=== PATIENT | female | born 1945 | race Caucasian/White ===

== ENCOUNTER 2017-05-20 11:43 | Outpatient (CLI) | payer MEDICARE, BC | END 2017-05-20 11:44 | disposition home or self-care (01) | LOC: BICMAMMO 11:43 | PROVIDERS: ATTEND Family Medicine | DX: Z12.31 Encounter for screening mammogram for malignant neoplasm of breast (principal) | CPT/HCPCS: 77063; 77067 ==

== ENCOUNTER 2021-10-21 15:25 | Emergency (ER) | payer MEDICARE, BC ==
[~2021-10-21 15:25] MED LIST: ISOVUE-370 76%-LOCM 1 ML ONE
[2021-10-21 18:12] LABS: #Eosinphils 0.1 thou/uL (0.0-0.7); #Lymphocytes 1.5 thou/uL (1.20-3.40); #Monocytes 0.4 thou/uL (0.11-0.59); #Neutrophils 3.9 thou/uL (1.40-6.50); %Basophils 0.3 % (0.0-1.0); %Eosinophils 2.1 % (0.0-10.0); %Lymphocytes 24.5 % (21.0-51.0); %Monocytes 7.3 % (0.0-10.0); %Neutrophils 65.7 % (42.0-75.0); Mean Corpuscular HGB CONC 32.7 g/dL (32.0-36.0); Mean Corpuscular Hemoglobin 30.7 pg (27.0-31.0); Mean Corpuscular Volume 93.7 fL (78.0-98.0); Mean Platelet Volume 9.4 fL (7.4-10.4); Platelet Count 161 thou/uL (130-400); RBC Distribution Width 12.1 % (11.5-14.5); Red Blood Cell (RBC) Count 4.23 mill/uL (4.20-5.40); White Blood Cell (WBC) Count 5.9 thou/uL (4.8-10.8)
[2021-10-21 18:39] LABS: ALT (SGPT) 15 U/L (8-55); AST (SGOT) 15 U/L (5-34); Albumin 3.5 g/dL (3.4-4.8); Alkaline Phosphatase 63 U/L (40-110); Anion Gap 11 mmol/L (10-20); BUN (Urea Nitrogen) 8 mg/dL (9.8-20.1); Bilirubin, Total 0.6 mg/dL (0.2-1.2); Calc. Creatinine Clearance 0 mL/min (70-130); Calcium 8.7 mg/dL (7.8-10.44); Carbon Dioxide 28 mmol/L (23-31); Chloride 102 mmol/L (98-107); Globulin 2.5 g/dL (2.4-3.5); Glucose 98 mg/dL (83-110); Sodium 137 mmol/L (136-145)
[2021-10-21] MEDS ORDERED: Glycerin Adult Supp. (24 ct jar) RC SCH (19:15)
[2021-10-21] MEDS ORDERED: Senokot 8.6 MG TAB PO SCH (21:00)
[2021-10-21] MEDS ORDERED: Docusate 100 MG CAP PO SCH (21:00)
[2021-10-21 21:43] LABS: Bacteria/HPF 2+ HPF (None Seen); Bilirubin Negative (Negative); Blood, Urine Negative (Negative); Clarity Clear (Clear); Glucose, Urine (Dipstick) Normal (Negative); Ketone, Urine Negative (Negative); Leukocyte 75 Leu/uL (Negative); Nitrite 2+ (Negative); Protein, Urine (Dipstick) Negative (Neg-Trace); RBC/HPF None Seen HPF (0-3); Specific Gravity, Urine 1.037 (1.002-1.036); Squamous Epithelial 0-3 HPF (0-3); Urobilinogen Normal mg/dL (Less than 2)
== END 2021-10-21 22:17 | disposition home or self-care (01) ==
LOC: ERS 15:25
DX: N39.0 Urinary tract infection, site not specified (principal); E78.5 Hyperlipidemia, unspecified; E78.00 Pure hypercholesterolemia, unspecified; I10 Essential (primary) hypertension; Z87.891 Personal history of nicotine dependence
CPT/HCPCS: 36415; 74177; 80053; 81003; 81015; 85025; 87077; 87086; 87186; 99283; Q9966

== ENCOUNTER 2023-04-01 08:44 | Outpatient (CLI) | payer MEDICARE, BC | END 2023-04-01 08:45 | disposition home or self-care (01) | LOC: BICMAMMO 08:44 | PROVIDERS: ATTEND Nurse Practitioner Family | DX: Z13.820 Encounter for screening for osteoporosis (principal); M81.0 Age-related osteoporosis without current pathological fracture; Z78.0 Asymptomatic menopausal state | CPT/HCPCS: 77080 ==

== ENCOUNTER 2023-06-04 00:08 | Inpatient (IN) | payer BC, MEDICARE ==
[2023-06-04 01:19] LABS: #Eosinphils 0.1 thou/uL (0.0-0.7); #Monocytes 0.4 thou/uL (0.11-0.59); #Neutrophils 5.4 thou/uL (1.40-6.50); %Basophils 0.3 % (0.0-1.0); %Eosinophils 1.2 % (0.0-10.0); %Lymphocytes 12.5 % (21.0-51.0); %Monocytes 5.7 % (0.0-10.0); Hematocrit 38.9 % (36.0-47.0); Hemoglobin 13.1 g/dL (12.0-16.0); Mean Corpuscular HGB CONC 33.7 g/dL (32.0-36.0); Mean Corpuscular Hemoglobin 29.3 pg (27.0-31.0); Mean Platelet Volume 12.1 fL (7.4-10.4); Platelet Count 139 10x3/uL (130-400); RBC Distribution Width 13.9 % (11.5-14.5); Red Blood Cell (RBC) Count 4.47 mill/uL (4.20-5.40); White Blood Cell (WBC) Count 6.7 10x3/uL (4.8-10.8)
[2023-06-04 01:33] LABS: INR-International Normal Ratio 2.2; Prothrombin Time 24.1 sec (12.0-14.7)
[2023-06-04 01:42] LABS: ALT (SGPT) 31 U/L (8-55); AST (SGOT) 47 U/L (5-34); Albumin 3.4 g/dL (3.4-4.8); Alkaline Phosphatase 75 U/L (40-110); Anion Gap 11 mmol/L (10-20); BUN (Urea Nitrogen) 12 mg/dL (9.8-20.1); Bilirubin, Total 1.6 mg/dL (0.2-1.2); Calc. Creatinine Clearance 0 mL/min (70-130); Calcium 8.6 mg/dL (7.8-10.44); Carbon Dioxide 28 mmol/L (23-31); Chloride 99 mmol/L (98-107); Estimated GFR 77; Globulin 2.5 g/dL (2.4-3.5); Glucose 114 mg/dL (83-110); Lipase 27 U/L (8-78); Potassium 3.2 mmol/L (3.5-5.1); Protein, Total 5.9 g/dL (5.8-8.1); Sodium 135 mmol/L (136-145)
[2023-06-04 01:44] LABS: Troponin I 0.017 ng/mL (< 0.028)
[2023-06-04] MEDS ORDERED: Potassium Bicarbonate/Cit Ac 20 MEQ TAB ONE (02:24)
[2023-06-04] MEDS ORDERED: Magnesium 2 GM/50 ML BAG (IN WATER) ONE (03:03)
[2023-06-04 04:14] LABS: Bacteria/HPF None Seen HPF (None Seen); Bilirubin Negative (Negative); Blood, Urine Negative (Negative); CAUTI Indications for Culture Pelvic or flank pain; Clarity Clear (Clear); Glucose, Urine (Dipstick) Normal (Negative); Ketone, Urine Negative (Negative); Leukocyte 250 Leu/uL (Negative); Nitrite Negative (Negative); Protein, Urine (Dipstick) Negative (Neg-Trace); RBC/HPF 0-3 HPF (0-3); Specific Gravity, Urine 1.016 (1.002-1.036); Squamous Epithelial 0-3 HPF (0-3); pH, Urine 7.5 (5.0-9.0)
[2023-06-04 04:22] LABS: Urine Culture Reflex No No
[2023-06-04] MEDS ORDERED: Sodium Chloride 0.9% 100 ML ONE (07:50)
[2023-06-04] MEDS ORDERED: Piperacillin/Tazobactam 4.5 GM VIAL ONE (07:50)
[2023-06-04] MEDS ORDERED: Acetaminophen 650 MG Suppository PR PRN (10:38)
[2023-06-04] MEDS: Sodium Chloride 0.9% 1,000 ML IV SCH (11:49)
[2023-06-04] MEDS: dilTIAZem 125 MG in Sodium Chloride 0.9% 100 ML IVPB SCH (12:00)
[2023-06-04] MEDS: NS 0.9% w/ 20 MEQ KCL 1,000 ML/1,000 ML BAG IV SCH (12:00)
[2023-06-04] MEDS ORDERED: Piperacillin/Tazobactam 4.5 GM in Sodium Chloride 0.9% 100 ML IVPB SCH (14:00)
[2023-06-04] MEDS ORDERED: Iopamidol-370 76% 500 ML MDV (1 ML CHARGE) ONE (15:33)
[2023-06-04] MEDS: HYDROcodone/Acetaminophen 5/325 mg Tablet PO PRN (18:11)
[2023-06-04] MEDS: Piperacillin/Tazobactam 4.5 GM in Sodium Chloride 0.9% 100 ML IVPB SCH (18:12)
[2023-06-04] MEDS ORDERED: Ondansetron ODT 4 MG TAB PO PRN (19:55)
[2023-06-04] MEDS: Ondansetron PF 4 MG/2 ML Vial IVP PRN (20:43)
[2023-06-04] MEDS: Calcium Carbonate 500 MG ChewTAB PO PRN (20:43)
[2023-06-05 05:03] LABS: ALT (SGPT) 39 U/L (8-55); AST (SGOT) 31 U/L (5-34); Albumin 3.4 g/dL (3.4-4.8); Alkaline Phosphatase 75 U/L (40-110); Anion Gap 10 mmol/L (10-20); BUN (Urea Nitrogen) 8 mg/dL (9.8-20.1); Calc. Creatinine Clearance 85 mL/min (70-130); Calcium 8.7 mg/dL (7.8-10.44); Carbon Dioxide 26 mmol/L (23-31); Chloride 105 mmol/L (98-107); Estimated GFR 82; Globulin 2.6 g/dL (2.4-3.5); Glucose 95 mg/dL (83-110); Potassium 4.3 mmol/L (3.5-5.1); Sodium 137 mmol/L (136-145)
[2023-06-05] MEDS: Benzonatate 100 MG CAP PO PRN (21:36)
[2023-06-05] MEDS: GUAIFENESIN SF SOLN 200 MG/10 ML UDCUP PO PRN (22:41)
[2023-06-05] MEDS: dilTIAZem 25 MG/5 ML VIAL SLOW IVP SCH (23:13)
[2023-06-05] MEDS: dilTIAZem 125 MG in Sodium Chloride 0.9% 100 ML IVPB SCH (23:18)
[2023-06-06] MEDS: Metoprolol Tartrate 5 MG (5 mL) VIAL IVP SCH (04:49)
[2023-06-06] MEDS: Ipratropium/Albuterol 3 ML NEB NEB SCH (12:22)
[2023-06-06] MEDS: Sodium Chloride 0.9% 1,000 ML IV SCH (12:35)
[2023-06-06 13:54] LABS: #Eosinphils 0.1 thou/uL (0.0-0.7); #Monocytes 0.5 thou/uL (0.11-0.59); #Neutrophils 5.8 thou/uL (1.40-6.50); %Basophils 0.3 % (0.0-1.0); %Eosinophils 0.8 % (0.0-10.0); %Lymphocytes 12.2 % (21.0-51.0); %Monocytes 6.6 % (0.0-10.0); %Neutrophils 79.5 % (42.0-75.0); Hematocrit 39.5 % (36.0-47.0); Hemoglobin 12.4 g/dL (12.0-16.0); Mean Corpuscular HGB CONC 31.4 g/dL (32.0-36.0); Mean Corpuscular Hemoglobin 28.9 pg (27.0-31.0); Mean Corpuscular Volume 92.1 fl (78.0-98.0); Mean Platelet Volume 12.5 fL (7.4-10.4); Platelet Count 130 10x3/uL (130-400); RBC Distribution Width 14.3 % (11.5-14.5); Red Blood Cell (RBC) Count 4.29 mill/uL (4.20-5.40); White Blood Cell (WBC) Count 7.2 10x3/uL (4.8-10.8)
[2023-06-06] MEDS ORDERED: Furosemide 20 MG (2 mL) VIAL SLOW IVP SCH (14:00)
[2023-06-06 14:16] LABS: Anion Gap 10 mmol/L (10-20); BUN (Urea Nitrogen) 5 mg/dL (9.8-20.1); Calc. Creatinine Clearance 90 mL/min (70-130); Calcium 8.2 mg/dL (7.8-10.44); Carbon Dioxide 24 mmol/L (23-31); Chloride 102 mmol/L (98-107); Estimated GFR 87; Glucose 209 mg/dL (83-110); Potassium 3.6 mmol/L (3.5-5.1); Sodium 132 mmol/L (136-145)
[2023-06-06] MEDS: Piperacillin/Tazobactam 3.375 GM in Sodium Chloride 0.9% 100 ML IVPB SCH (15:42)
[2023-06-06] MEDS: Enoxaparin 100 MG (1 mL) SYRINGE SC SCH (20:59)
[2023-06-06] MEDS: Levalbuterol HCl 0.63 MG/3 ML NEB NEB SCH (21:38)
[2023-06-06] MEDS: Budesonide 0.5 MG/2 ML NEB INH SCH (21:38)
[2023-06-07 05:50] LABS: #Eosinphils 0.1 thou/uL (0.0-0.7); #Monocytes 0.7 thou/uL (0.11-0.59); #Neutrophils 6.2 thou/uL (1.40-6.50); %Basophils 0.3 % (0.0-1.0); %Eosinophils 0.8 % (0.0-10.0); %Lymphocytes 11.9 % (21.0-51.0); %Monocytes 8.9 % (0.0-10.0); %Neutrophils 77.8 % (42.0-75.0); Hematocrit 40.4 % (36.0-47.0); Mean Corpuscular HGB CONC 32.2 g/dL (32.0-36.0); Mean Corpuscular Hemoglobin 28.6 pg (27.0-31.0); Mean Platelet Volume 13.2 fL (7.4-10.4); Platelet Count 149 10x3/uL (130-400); RBC Distribution Width 13.8 % (11.5-14.5); Red Blood Cell (RBC) Count 4.55 mill/uL (4.20-5.40); White Blood Cell (WBC) Count 7.9 10x3/uL (4.8-10.8)
[2023-06-07 05:56] LABS: Mean Corpuscular Volume 88.8 fl (78.0-98.0)
[2023-06-07] MEDS: Magnesium 2 GM/50 ML(in water) 2 GM in Premix 1 BAG IVPB SCH (06:08)
[2023-06-07] MEDS: Ipratropium Bromide 2.5 ml Neb NEB SCH (06:11)
[2023-06-07 06:20] LABS: ALT (SGPT) 24 U/L (8-55); AST (SGOT) 14 U/L (5-34); Albumin 3.2 g/dL (3.4-4.8); Alkaline Phosphatase 67 U/L (40-110); Anion Gap 10 mmol/L (10-20); BUN (Urea Nitrogen) 5 mg/dL (9.8-20.1); Bilirubin, Total 1.1 mg/dL (0.2-1.2); Calc. Creatinine Clearance 106 mL/min (70-130); Calcium 8.4 mg/dL (7.8-10.44); Carbon Dioxide 24 mmol/L (23-31); Chloride 101 mmol/L (98-107); Estimated GFR 91; Globulin 2.7 g/dL (2.4-3.5); Glucose 115 mg/dL (83-110); Potassium 3.5 mmol/L (3.5-5.1); Protein, Total 5.9 g/dL (5.8-8.1); Sodium 131 mmol/L (136-145)
[2023-06-07 06:52] LABS: Magnesium 1.7 mg/dL (1.6-2.6)
[2023-06-07] MEDS: Furosemide 20 MG (2 mL) VIAL SLOW IVP SCH (07:13)
[2023-06-07] MEDS: methylPREDNISolone Sod Succ/PF 125 MG/2 ML VIAL IVP SCH (07:15)
[2023-06-07] MEDS: Morphine 2 MG/ML VIAL SLOW IVP SCH (07:19)
[2023-06-07] MEDS: dilTIAZem 30 MG TAB PO SCH (09:00)
[2023-06-07] MEDS: Potassium Chloride 20 MEQ in Premix 1 BAG IVPB SCH (09:00)
[2023-06-07] MEDS: Furosemide 40 MG (4 mL) VIAL SLOW IVP SCH (09:00)
[2023-06-07] MEDS: Loratadine 10 MG TAB PO SCH (09:00)
[2023-06-07] MEDS: Raloxifene 60 MG TAB PO SCH (10:26)
[2023-06-07] MEDS: Digoxin 0.5 MG/2 ML AMP SLOW IVP SCH (10:27)
[2023-06-07] MEDS: Ipratropium Bromide 2.5 ml Neb ONE (12:14)
[2023-06-07] MEDS ORDERED: Levalbuterol HCl 0.63 MG/3 ML NEB NEB PRN (13:25)
[2023-06-07] MEDS ORDERED: Electrolyte Replacement Protocol FS PRN (16:45)
[2023-06-07 17:11] LABS: Anion Gap 11 mmol/L (10-20); BUN (Urea Nitrogen) 5 mg/dL (9.8-20.1); Calc. Creatinine Clearance 98 mL/min (70-130); Calcium 8.6 mg/dL (7.8-10.44); Carbon Dioxide 23 mmol/L (23-31); Chloride 100 mmol/L (98-107); Estimated GFR 88; Glucose 222 mg/dL (83-110); Sodium 130 mmol/L (136-145)
[2023-06-08] MEDS: HYDROcodone/Acetaminophen 5/325 mg Tablet PO PRN (02:49)
[2023-06-08] MEDS: Acetaminophen 325 MG TAB PO PRN (03:51)
[2023-06-08 04:07] LABS: #Monocytes 0.5 thou/uL (0.11-0.59); #Neutrophils 9.1 thou/uL (1.40-6.50); %Monocytes 4.9 % (0.0-10.0); %Neutrophils 89.9 % (42.0-75.0); Hematocrit 38.2 % (36.0-47.0); Hemoglobin 12.9 g/dL (12.0-16.0); Mean Corpuscular HGB CONC 33.8 g/dL (32.0-36.0); Mean Platelet Volume 11.9 fL (7.4-10.4); Platelet Count 154 10x3/uL (130-400); RBC Distribution Width 13.8 % (11.5-14.5); Red Blood Cell (RBC) Count 4.45 mill/uL (4.20-5.40); White Blood Cell (WBC) Count 10.1 10x3/uL (4.8-10.8)
[2023-06-08 04:14] LABS: Mean Corpuscular Volume 85.8 fl (78.0-98.0)
[2023-06-08 04:33] LABS: Phosphorus 1.7 mg/dL (2.3-4.7)
[2023-06-08 05:05] LABS: Alkaline Phosphatase 59 U/L (40-110); Anion Gap 11 mmol/L (10-20); Bilirubin, Total 0.8 mg/dL (0.2-1.2); Calcium 8.7 mg/dL (7.8-10.44); Carbon Dioxide 26 mmol/L (23-31); Chloride 100 mmol/L (98-107); Globulin 2.6 g/dL (2.4-3.5); Glucose 142 mg/dL (83-110); Potassium 3.6 mmol/L (3.5-5.1); Protein, Total 5.6 g/dL (5.8-8.1); Sodium 133 mmol/L (136-145)
[2023-06-08 05:06] LABS: Calc. Creatinine Clearance 105 mL/min (70-130); Estimated GFR 89
[2023-06-08 05:07] LABS: BUN (Urea Nitrogen) 9 mg/dL (9.8-20.1)
[2023-06-08 05:08] LABS: ALT (SGPT) 22 U/L (8-55); AST (SGOT) 14 U/L (5-34); Magnesium 1.9 mg/dL (1.6-2.6)
[2023-06-08] MEDS ORDERED: Bacteriostatic Normal Saline 30 ML VIAL ONE (09:15)
[2023-06-08] MEDS ORDERED: Sincalide 5 MCG VIAL ONE (09:15)
[2023-06-08] MEDS ORDERED: Sterile Water 10 ML ONE (09:15)
[2023-06-08] MEDS: Magnesium 2 GM/50 ML(in water) 2 GM in Premix 1 BAG IVPB SCH (11:38)
[2023-06-08] MEDS: PHOS-NAK 1 PKT PACK PO SCH (11:40)
[2023-06-08] MEDS: Rivaroxaban 10 MG TAB PO SCH (16:41)
[2023-06-08] MEDS: Amoxicillin/Potassium Clav 875 MG TAB PO SCH (21:01)
[2023-06-08] MEDS: Metoprolol Tartrate 25 MG TAB PO SCH (21:02)
[2023-06-09 04:39] LABS: ALT (SGPT) 23 U/L (8-55); AST (SGOT) 17 U/L (5-34); Albumin 2.8 g/dL (3.4-4.8); Alkaline Phosphatase 56 U/L (40-110); Anion Gap 8 mmol/L (10-20); BUN (Urea Nitrogen) 12 mg/dL (9.8-20.1); Bilirubin, Total 0.5 mg/dL (0.2-1.2); Calc. Creatinine Clearance 102 mL/min (70-130); Calcium 8.2 mg/dL (7.8-10.44); Carbon Dioxide 30 mmol/L (23-31); Chloride 98 mmol/L (98-107); Estimated GFR 89; Globulin 2.4 g/dL (2.4-3.5); Glucose 94 mg/dL (83-110); Magnesium 1.9 mg/dL (1.6-2.6); Potassium 3.4 mmol/L (3.5-5.1); Protein, Total 5.2 g/dL (5.8-8.1); Sodium 133 mmol/L (136-145)
[2023-06-09] MEDS: Magnesium 2 GM/50 ML(in water) 2 GM in Premix 1 BAG IVPB SCH (09:10)
[2023-06-09] MEDS: dilTIAZem 30 MG TAB PO SCH (09:11)
[2023-06-09] MEDS: Potassium Chloride 20 MEQ TAB PO SCH (09:12)
[2023-06-09] MEDS: Digoxin 0.125 MG TAB PO SCH (13:14)
[2023-06-10] MEDS ORDERED: dilTIAZem 125 MG in Sodium Chloride 0.9% 100 ML IVPB SCH (05:57)
[2023-06-10 08:06] LABS: Anion Gap 12 mmol/L (10-20); BUN (Urea Nitrogen) 12 mg/dL (9.8-20.1); Calc. Creatinine Clearance 105 mL/min (70-130); Calcium 8.3 mg/dL (7.8-10.44); Carbon Dioxide 26 mmol/L (23-31); Chloride 101 mmol/L (98-107); Estimated GFR 90; Glucose 80 mg/dL (83-110); Potassium 3.9 mmol/L (3.5-5.1); Sodium 135 mmol/L (136-145)
[2023-06-10] MEDS ORDERED: Metoprolol Tartrate 25 MG TAB PO SCH (08:20)
[2023-06-10] MEDS: Digoxin 0.125 MG TAB PO SCH (09:34)
[2023-06-10] MEDS: Furosemide 20 MG TAB PO SCH (09:34)
[2023-06-10] MEDS: dilTIAZem CD 300 MG CAP PO SCH (09:34)
[2023-06-10] MEDS: Magnesium 2 GM/50 ML(in water) 2 GM in Premix 1 BAG IVPB SCH (09:34)
[2023-06-10] MEDS: Metoprolol Tartrate 50 MG TAB PO SCH (09:35)
[2023-06-10 10:52] VITALS: BMI 33.3
[2023-06-11] MEDS: Bisacodyl 5 MG TAB PO PRN (18:38)
[2023-06-11 19:18] LABS: Anion Gap 13 mmol/L (10-20); BUN (Urea Nitrogen) 13 mg/dL (9.8-20.1); Calc. Creatinine Clearance 95 mL/min (70-130); Calcium 8.9 mg/dL (7.8-10.44); Carbon Dioxide 23 mmol/L (23-31); Chloride 100 mmol/L (98-107); Estimated GFR 87; Glucose 105 mg/dL (83-110); Potassium 3.9 mmol/L (3.5-5.1); Sodium 132 mmol/L (136-145)
[2023-06-13] MEDS: Ipratropium Bromide 2.5 ml Neb NEB SCH (18:50)
[2023-06-16 05:16] LABS: #Eosinphils 0.2 thou/uL (0.0-0.7); #Monocytes 0.6 thou/uL (0.11-0.59); #Neutrophils 4.7 thou/uL (1.40-6.50); %Basophils 0.6 % (0.0-1.0); %Eosinophils 2.4 % (0.0-10.0); %Lymphocytes 18.7 % (21.0-51.0); %Monocytes 9.1 % (0.0-10.0); %Neutrophils 68.8 % (42.0-75.0); Hematocrit 43.4 % (36.0-47.0); Hemoglobin 14.9 g/dL (12.0-16.0); Mean Corpuscular HGB CONC 34.3 g/dL (32.0-36.0); Mean Corpuscular Hemoglobin 29.3 pg (27.0-31.0); Mean Corpuscular Volume 85.3 fl (78.0-98.0); Mean Platelet Volume 11.1 fL (7.4-10.4); Platelet Count 223 10x3/uL (130-400); RBC Distribution Width 13.8 % (11.5-14.5); Red Blood Cell (RBC) Count 5.09 mill/uL (4.20-5.40); White Blood Cell (WBC) Count 6.8 10x3/uL (4.8-10.8)
[2023-06-16 05:49] LABS: Anion Gap 12 mmol/L (10-20); BUN (Urea Nitrogen) 12 mg/dL (9.8-20.1); Calc. Creatinine Clearance 103 mL/min (70-130); Calcium 8.8 mg/dL (7.8-10.44); Carbon Dioxide 23 mmol/L (23-31); Chloride 100 mmol/L (98-107); Estimated GFR 89; Glucose 105 mg/dL (83-110); Magnesium 1.9 mg/dL (1.6-2.6); Sodium 131 mmol/L (136-145)
[2023-06-16] MEDS: Magnesium 2 GM/50 ML(in water) 2 GM in Premix 1 BAG IVPB SCH (09:16)
[2023-06-21 20:00] VITALS: BP 123/78; TEMP 97.9
[2023-06-22] MEDS ORDERED: Lysine 500 MG TAB PO SCH (09:00)
== END 2023-06-21 20:45 | DRG 444 ==
LOC: ERS 00:08 → 2NO 08:20 → CCU 06-07 06:34 → 2NO 06-09 11:33 → SURG A 06-19 11:17
PROVIDERS: ADMIT Internal Medicine; ATTEND Emergency Medicine
DX: K80.00 Calculus of gallbladder with acute cholecystitis without obstruction (principal); J96.01 Acute respiratory failure with hypoxia; I50.32 Chronic diastolic (congestive) heart failure; I48.19 Other persistent atrial fibrillation; I11.0 Hypertensive heart disease with heart failure; Z66 Do not resuscitate; I25.10 Atherosclerotic heart disease of native coronary artery without angina pectoris; E78.5 Hyperlipidemia, unspecified; J30.2 Other seasonal allergic rhinitis; K21.9 Gastro-esophageal reflux disease without esophagitis; I87.2 Venous insufficiency (chronic) (peripheral); N28.1 Cyst of kidney, acquired; Z88.8 Allergy status to other drugs, medicaments and biological substances; Z79.899 Other long term (current) drug therapy; Z98.49 Cataract extraction status, unspecified eye; Z98.890 Other specified postprocedural states; Z87.891 Personal history of nicotine dependence; Z82.49 Family history of ischemic heart disease and other diseases of the circulatory system
CPT/HCPCS: 36415; 36416; 71045; 74177; 76705; 78226; 80048; 80053; 81001; 83605; 83690; 83735; 83880; 84100; 84484; 85025; 85610; 85730; 87040; 93005; 93010; 94640; 94660; 94760; 96365; 96375; A9537; J1160; J1650; J1940; J2405; J2543; J2805; J2930; J3475; J3480; J3490; J7050; J7614; J7620; J7626; Q9967

== ENCOUNTER 2023-10-27 09:30 | Outpatient (CLI) | payer MEDICARE | END 2023-10-27 09:31 | disposition home or self-care (01) | LOC: PET 09:30 | PROVIDERS: ATTEND Psychiatry & Neurology Neurology | DX: F03.90 Unspecified dementia, unspecified severity, without behavioral disturbance, psychotic disturbance, mood disturbance, and anxiety (principal) | CPT/HCPCS: 78803; A9552 ==

== ENCOUNTER 2024-03-04 19:00 | Inpatient (IN) | payer MEDICARE ==
[~2024-03-04 19:00] MED LIST changes: -ISOVUE-370 76%-LOCM 1 ML ONE; +Iopamidol-370 76% 500 ML MDV (1 ML CHARGE) ONE
[2024-03-04 19:55] LABS: #Basophils 0.04 10x3/uL (0.0-0.2); %Basophils 0.4 % (0.0-1.0); %Eosinophils 2.3 % (0.0-10.0); %Lymphocytes 18.5 % (21.0-51.0); %Monocytes 6.9 % (0.0-10.0); %Neutrophils 71.6 % (42.0-75.0); Hematocrit 40.3 % (36.0-47.0); Hemoglobin 13.5 g/dL (12.0-16.0); Mean Corpuscular HGB CONC 33.5 g/dL (32.0-36.0); Mean Corpuscular Hemoglobin 29.8 pg (27.0-31.0); Mean Platelet Volume 10.9 fL (7.4-10.4); Platelet Count 216 10x3/uL (130-400); RBC Distribution Width 12.9 % (11.5-14.5); Red Blood Cell (RBC) Count 4.53 mill/uL (4.20-5.40)
[2024-03-04 20:15] LABS: INR-International Normal Ratio 1.6; Prothrombin Time 19.4 sec (12.0-14.7)
[2024-03-04 20:16] LABS: PTT 44.9 sec (22.9-36.1)
[2024-03-04 20:24] LABS: ALT (SGPT) 17 U/L (8-55); AST (SGOT) 16 U/L (5-34); Albumin 3.3 g/dL (3.4-4.8); Alkaline Phosphatase 91 U/L (40-110); Anion Gap 16 mmol/L (10-20); BUN (Urea Nitrogen) 11 mg/dL (9.8-20.1); Bilirubin, Total 0.3 mg/dL (0.2-1.2); Calc. Creatinine Clearance 0 mL/min (70-130); Calcium 8.7 mg/dL (7.8-10.44); Carbon Dioxide 23 mmol/L (23-31); Chloride 103 mmol/L (98-107); Estimated GFR 66; Globulin 3.4 g/dL (2.4-3.5); Glucose 152 mg/dL (83-110); Potassium 3.8 mmol/L (3.5-5.1); Protein, Total 6.7 g/dL (5.8-8.1); Sodium 138 mmol/L (136-145)
[2024-03-04 20:59] LABS: Bacteria/HPF None Seen HPF (None Seen); Bilirubin Negative (Negative); Blood, Urine Negative (Negative); CAUTI Indications for Culture Alt mental st,lethar; Clarity Turbid (Clear); Glucose, Urine (Dipstick) Normal (Negative); Ketone, Urine Negative (Negative); Leukocyte 500 Leu/uL (Negative); Nitrite Negative (Negative); Protein, Urine (Dipstick) Negative (Neg-Trace); RBC/HPF 0-3 HPF (0-3); Specific Gravity, Urine 1.008 (1.002-1.036); Squamous Epithelial 0-3 HPF (0-3); Urobilinogen Normal mg/dL (Less than 2); WBC/HPF 21-50 HPF (0-3); pH, Urine 6.5 (5.0-9.0)
[2024-03-04 21:01] LABS: Urine Culture Reflex Yes Yes
[2024-03-04] MEDS ORDERED: cefTRIAXone (ROCEPHIN) 1 GM VIAL ONE (21:24)
[2024-03-04] MEDS ORDERED: Sodium Chloride 0.9% 100 ML ONE (21:24)
[2024-03-04] MEDS ORDERED: Ondansetron ODT 4 MG TAB PO PRN (21:49)
[2024-03-04 23:44] VITALS: BMI 27.8
[2024-03-05 05:12] LABS: #Basophils 0.03 10x3/uL (0.0-0.2); %Basophils 0.3 % (0.0-1.0); %Eosinophils 1.3 % (0.0-10.0); %Lymphocytes 14.1 % (21.0-51.0); %Monocytes 6.2 % (0.0-10.0); %Neutrophils 77.8 % (42.0-75.0); Hematocrit 40.3 % (36.0-47.0); Hemoglobin 13.2 g/dL (12.0-16.0); Mean Corpuscular HGB CONC 32.8 g/dL (32.0-36.0); Mean Corpuscular Hemoglobin 29.5 pg (27.0-31.0); Mean Platelet Volume 11.3 fL (7.4-10.4); Platelet Count 202 10x3/uL (130-400); RBC Distribution Width 13.1 % (11.5-14.5); Red Blood Cell (RBC) Count 4.48 mill/uL (4.20-5.40)
[2024-03-05] MEDS: Senokot S 8.6-50 MG TAB PO SCH (08:33)
[2024-03-05] MEDS: Acetaminophen 325 MG TAB PO PRN (12:01)
[2024-03-05] MEDS: traMADol HCl 50 MG TAB PO PRN (17:52)
[2024-03-05] MEDS ORDERED: Budesonide 0.5 MG/2 ML NEB NEB PRN (20:46)
[2024-03-05] MEDS: Atorvastatin Calcium 20 MG TAB PO SCH (22:06)
[2024-03-05] MEDS: Metoprolol Tartrate 25 MG TAB PO SCH (22:06)
[2024-03-05] MEDS: Fluticasone Propionate Nasal Spray 16 gm Bottle NASAL SCH (22:07)
[2024-03-06] MEDS: Rivastigmine 1.5 MG CAP PO SCH (08:29)
[2024-03-06] MEDS: Loratadine 10 MG TAB PO SCH (08:30)
[2024-03-06] MEDS: Digoxin 0.125 MG TAB PO SCH (08:30)
[2024-03-06] MEDS: dilTIAZem CD 300 MG CAP PO SCH (08:30)
[2024-03-06] MEDS: Pantoprazole DR 40 MG TAB PO SCH (08:30)
[2024-03-06] MEDS: Raloxifene 60 MG TAB PO SCH (08:30)
[2024-03-06] MEDS ORDERED: Rivaroxaban 10 MG TAB PO SCH (09:00)
[2024-03-06 11:42] VITALS: BP 138/83; TEMP 97.7
[2024-03-06] MEDS: LYSINE 500 MG PO SCH (11:42)
== END 2024-03-06 15:55 | disposition home or self-care (01) | DRG 552 ==
LOC: ERS 19:00 → SURG A 22:11 → OBSVTOIN 03-06 09:35
PROVIDERS: ADMIT Surgery; ATTEND Surgery
DX: S16.1XXA Strain of muscle, fascia and tendon at neck level, initial encounter (principal); I48.91 Unspecified atrial fibrillation; I10 Essential (primary) hypertension; E78.5 Hyperlipidemia, unspecified; K21.9 Gastro-esophageal reflux disease without esophagitis; Z98.890 Other specified postprocedural states; Z87.891 Personal history of nicotine dependence; Z88.8 Allergy status to other drugs, medicaments and biological substances; Z79.899 Other long term (current) drug therapy; W19.XXXA Unspecified fall, initial encounter
CPT/HCPCS: 36415; 70450; 71260; 72125; 72141; 74177; 80053; 81001; 85025; 85610; 85730; 87077; 87086; 87186; 93005; 96374; G0378; J0696; Q9967

== ENCOUNTER 2024-04-06 13:41 | Outpatient (CLI) | payer MEDICARE | END 2024-04-06 13:42 | disposition home or self-care (01) | LOC: BICMAMMO 13:41 | PROVIDERS: ATTEND Nurse Practitioner Family | DX: N63.0 Unspecified lump in unspecified breast (principal) | CPT/HCPCS: 76642; 77066; G0279 ==

== ENCOUNTER → 2024-05-28 | Day surgery (SDC) | payer MEDICARE ==
[~2024-05-28] MED LIST changes: -Iopamidol-370 76% 500 ML MDV (1 ML CHARGE) ONE; +Lidocaine 1% PF 5 ML VIAL ONE; +Sodium Bicarbonate 2.5 MEQ/5 ML SDV ONE
[2024-05-28 12:54] LABS: CSF, Protein 34.2 mg/dL (15-40)
[2024-05-28 13:43] LABS: CSF Source CSF; Clarity Clear (Clear); Tube # 4
[2024-05-30 03:12] LABS: HSV 1 - DNA, CSF Negative (Negative); HSV 2 - DNA, CSF Negative (Negative)
== END ==
LOC: RAD 08:36
PROVIDERS: ATTEND Psychiatry & Neurology Neurology
PROC: 009U3ZX Drainage of Spinal Canal, Percutaneous Approach, Diagnostic (ICD-10-PCS; principal; 2024-05-28)
DX: G91.2 (Idiopathic) normal pressure hydrocephalus (principal); Z88.8 Allergy status to other drugs, medicaments and biological substances; Z91.038 Other insect allergy status
CPT/HCPCS: 62270; 82945; 84157; 86612; 86635; 86698; 87070; 87205; 87529; 87899; 89051

== ENCOUNTER 2024-12-08 08:17 | Emergency (ER) | payer MEDICARE ==
[2024-12-08 09:06] LABS: Bacteria/HPF 4+ HPF (None Seen); CAUTI Indications for Culture Alt mental st,lethar; Glucose, Urine (Dipstick) Normal (Negative); Leukocyte 250 Leu/uL (Negative); Protein, Urine (Dipstick) Negative (Neg-Trace); RBC/HPF 0-3 HPF (0-3); Specific Gravity, Urine 1.017 (1.002-1.036); WBC/HPF 21-50 HPF (0-3)
[2024-12-08 09:10] LABS: Urine Culture Reflex Yes Yes
[2024-12-08] MEDS ORDERED: cefTRIAXone (ROCEPHIN) 1 GM VIAL ONE (09:29)
[2024-12-08 09:51] LABS: #Basophils 0.04 10x3/uL (0.0-0.2); #Eosinophils 0.17 10x3/uL (0.0-0.7); #Monocytes 0.49 10x3/uL (0.11-0.59); #Neutrophils 6.19 10x3/uL (1.40-6.50); %Basophils 0.5 % (0.0-1.0); %Eosinophils 2.1 % (0.0-10.0); %Lymphocytes 16.1 % (21.0-51.0); %Monocytes 5.9 % (0.0-10.0); %Neutrophils 75.0 % (42.0-75.0); Hematocrit 41.1 % (36.0-47.0); Hemoglobin 13.6 g/dL (12.0-16.0); Mean Corpuscular Hemoglobin 30.0 pg (27.0-31.0); Mean Corpuscular Volume 90.5 fL (78.0-98.0); Platelet Count 188 10x3/uL (130-400); Red Blood Cell (RBC) Count 4.54 mill/uL (4.20-5.40); White Blood Cell (WBC) Count 8.25 10x3/uL (4.8-10.8)
[2024-12-08 10:15] LABS: Digoxin 0.58 ng/mL (0.8-2.0)
[2024-12-08 10:16] LABS: ALT (SGPT) 17 U/L (Less than 34); AST (SGOT) 18 U/L (11-34); Albumin 3.3 g/dL (3.1-4.5); Alkaline Phosphatase 85 U/L (40-110); Anion Gap 15 mmol/L (10-20); BUN (Urea Nitrogen) 13 mg/dL (9.8-20.1); Bilirubin, Total 0.5 mg/dL (0.3-1.2); Calc. Creatinine Clearance 0 mL/min (70-130); Calcium 8.7 mg/dL (7.8-10.44); Carbon Dioxide 24 mmol/L (23-31); Chloride 105 mmol/L (98-107); Globulin 3.3 g/dL (2.4-3.5); Glucose 106 mg/dL (83-110); Potassium 4.1 mmol/L (3.5-5.1); Sodium 140 mmol/L (136-145)
[2024-12-08 12:50] LABS: Troponin I Less than 0.010 ng/mL (< 0.028)
== END 2024-12-08 13:10 ==
LOC: ERS 08:17
DX: R07.89 Other chest pain (principal); F03.90 Unspecified dementia, unspecified severity, without behavioral disturbance, psychotic disturbance, mood disturbance, and anxiety; N39.0 Urinary tract infection, site not specified; I48.91 Unspecified atrial fibrillation; E78.5 Hyperlipidemia, unspecified; I10 Essential (primary) hypertension; I25.10 Atherosclerotic heart disease of native coronary artery without angina pectoris; Z87.891 Personal history of nicotine dependence; Z79.02 Long term (current) use of antithrombotics/antiplatelets; Z79.899 Other long term (current) drug therapy
CPT/HCPCS: 71045; 80053; 80162; 81001; 84484; 85025; 87077; 87086; 87186; 93005; J0696; 51701; 96374

== ENCOUNTER 2025-03-02 08:39 | Emergency (ER) | payer MEDICARE ==
[2025-03-02] MEDS ORDERED: Acetaminophen 500 MG TAB ONE (08:59)
[2025-03-02] MEDS ORDERED: Ketorolac Tromethamine 30 MG (1 mL) VIAL ONE (10:29)
[2025-03-02] MEDS ORDERED: Methocarbamol 500 MG TAB ONE (11:05)
[2025-03-02] MEDS ORDERED: Ondansetron PF 4 MG/2 ML Vial ONE ×2 (16:44→17:00)
== END 2025-03-02 19:11 | disposition home or self-care (01) ==
LOC: ERS 08:39
DX: S32.029A Unspecified fracture of second lumbar vertebra, initial encounter for closed fracture (principal); E78.00 Pure hypercholesterolemia, unspecified; I10 Essential (primary) hypertension; I48.91 Unspecified atrial fibrillation; K21.9 Gastro-esophageal reflux disease without esophagitis; W18.30XA Fall on same level, unspecified, initial encounter; Z79.899 Other long term (current) drug therapy; Z79.01 Long term (current) use of anticoagulants; Z87.891 Personal history of nicotine dependence
CPT/HCPCS: 72100; 73080; J1885; J2270; J2405; 96372; 96374; 96375